=== PATIENT | male | born 1940 | race Hispanic/Latino ===

== ENCOUNTER 2018-08-01 04:44 | Emergency (ER) | payer MEDICARE, OTHER ==
[2018-08-01] MEDS ORDERED: ASPIRIN PO ONE (05:13)
--- NOTE | 2018-08-01 05:36 | XRay Report ---
PROCEDURE: XR CHEST 1V AP TECHNIQUE: Chest radiograph single view. HISTORY: Chest Pain COMPARISONS: None . FINDINGS: Heart: Normal. Mediastinum/Vessels: Multiple sternal wires are present. There is a cardiac pacemaker with battery in the left chest wall. Lungs/Pleural space: Normal. Bony thorax: No acute osseous abnormality. Life support devices: None. IMPRESSION: No acute cardiopulmonary abnormality. This document is electronically signed by Rika Negron DO., Aug 01 2018 05:33:40 AM ET
[2018-08-01 06:04] LABS: Basophils % (Auto) 0.5 % (0.0-1.8); Eosinophils # (Auto) 0.1 K/mm3 (0.0-0.4); Eosinophils % (Auto) 2.2 % (0.0-4.3); Hematocrit 38.7 % (35.5-45.6); Hemoglobin 13.2 gm/dl (11.8-15.2); Lymphocytes # (Auto) 1.6 K/mm3 (1.2-5.4); Lymphocytes % (Auto) 24.6 % (13.4-35.0); Mean Corpuscular HGB Conc 34 % (32-34); Mean Corpuscular Volume 95 fl (84-94); Monocytes # (Auto) 0.7 K/mm3 (0.0-0.8); Monocytes % (Auto) 10.2 % (0.0-7.3); Platelet Count 128 K/mm3 (140-440); Red Blood Count 4.06 M/mm3 (3.65-5.03); Red Cell Distribution Width 13.9 % (13.2-15.2)
[2018-08-01] MEDS ORDERED: NITRO-BID 2% TP ONE (06:18)
[2018-08-01] MEDS ORDERED: CATAPRES PO ONE (06:18)
--- NOTE | 2018-08-01 06:23 | Emergency Department Report ---
HPI - General Chief Complaint: Chest Pain Time Seen by Provider: 08/01/18 06:10 - [facility] HPI: Room 10 The patient is a 77-year-old male presented with a chief complaint of chest pain. The patient states he was awakened this morning at approximately 03:00 with substernal chest pain feeling as though something was sitting on his chest. Patient states he became short of breath and nauseous but denies vomiting or diaphoresis. Patient states his chest pain has been constant. The patient admits to a pleuritic component. The patient states he was told he had an WA approximately 1.5 months ago. Location: Substernal chest Duration: Onset at approximately 03:00, constant Quality: Heaviness Severity: Currently 0/10 Modifying factors: [see above] Context: [see above] Mode of transportation: [not driving] ED Past Medical Hx - Past Medical History Previous Medical History?: Yes Hx Hypertension: Yes Hx Heart Attack/AMI: Yes Additional medical history: stents - Surgical History Past Surgical History?: Yes Hx Pacemaker: Yes Hx Internal Defibrillator: Yes Additional Surgical History: open heart surgery - Family History Family history: no significant - Social History Smoking Status: Never Smoker Substance Use Type: None (denies illicit drug use) - Medications Home Medications: Home Medications Medication Instructions Recorded Confirmed Last Taken Type Amiodarone [Cordarone 200 MG TAB] 200 mg PO BID 08/01/18 08/01/18 07/29/18 History Isosorbide Dinitrate [Isordil 20 mg PO BID 08/01/18 08/01/18 07/29/18 History Titradose] ED Review of Systems ROS: Stated complaint: CHEST PAIN Other details as noted in HPI Constitutional: denies: diaphoresis Eyes: denies: eye pain ENT: denies: throat pain Respiratory: shortness of breath Cardiovascular: chest pain Endocrine: no symptoms reported Gastrointestinal: nausea. denies: abdominal pain, vomiting Genitourinary: denies: dysuria Musculoskeletal: denies: back pain Neurological: denies: headache Physical Exam - Physical Exam Vital Signs: Vital Signs 08/01/18 08/01/18 05:07 06:08 Temperature 98.2 F Pulse Rate 60 60 Respiratory 12 12 Rate Blood Pressure 194/104 Blood Pressure 194/104 183/97 [Right] O2 Sat by Pulse 97 97 Oximetry Physical Exam: GENERAL: The patient is well-developed well-nourished male lying on stretcher not appearing to be in acute distress. [] HEENT: Normocephalic. Atraumatic. Extraocular motions are intact. Patient has moist mucous membranes. NECK: Supple. Trachea midline CHEST/LUNGS: Clear to auscultation. There is no respiratory distress noted. HEART/CARDIOVASCULAR: Regular. There is no tachycardia. There is no gallop rub or murmur. ABDOMEN: Abdomen is soft, nontender. Patient has normal bowel sounds. There is no abdominal distention. SKIN: There is no rash. There is no edema. There is no diaphoresis. NEURO: The patient is awake, alert, and oriented. The patient is cooperative. The patient has normal speech MUSCULOSKELETAL: T There is no evidence of acute injury. ED Course Vital Signs 08/01/18 08/01/18 05:07 06:08 Temperature 98.2 F Pulse Rate 60 60 Respiratory 12 12 Rate Blood Pressure 194/104 Blood Pressure 194/104 183/97 [Right] O2 Sat by Pulse 97 97 Oximetry ED Medical Decision Making - Lab Data Result diagrams: 08/01/18 05:41 08/01/18 05:41 - EKG Data -: EKG Interpreted by Me EKG shows normal: sinus rhythm Rate: normal - EKG Data When compared to previous EKG there are: previous EKG unavailable Interpretation: nonspecific ST-T wave raj (T-wave inversions in leads V3, V4, V5, V6) - Radiology Data Radiology results: report reviewed (chest x-ray, VQ scan), image reviewed (chest x-ray, VQ scan) interpreted by me: Chest x-ray-no focal infiltrates, no pneumothorax Chest x-ray (read by radiologist)-no acute cardiopulmonary abnormality [facility] [address] [place] [address] Nuclear Medicine Report Signed Patient: FABI LOPEZ MR#: [id number] : 1940 Acct:[id number] Age/Sex: 77 / M ADM Date: 08/01/18 Loc: ED Attending Dr: Ordering Physician: MARTIN PACK MD Date of Service: 08/01/18 Procedure(s): NM lung scan perf/vent Accession Number(s): [id number] cc: MARTIN PACK MD LUNG SCAN, VENTILATION AND PERFUSION: Shortness of breath and chest pain: Inhalation of Xenon gas demonstrates a normal distribution of the activity throughout both lungs. The wash out phases show no focal retention of activity. After injection of Technetium 99m macroaggregated albumin gamma camera imaging of the lungs in multiple projections demonstrates normal pulmonary contours with a homogeneous distribution of activity. No focal areas of perfusion deficiency are identified. IMPRESSION: Normal study. Transcribed By: SONALI Dictated By: FELIPE PANDYA MD Electronically Authenticated By: FELIPE PANDYA MD Signed Date/Time: 08/01/181154 DD/ 52 TD/TT: 08/01/18 115 - Medical Decision Making Patient was informed that he was going to be admitted to the hospital for further evaluation. - Differential Diagnosis ACS, PE, pericarditis, GERD Critical care attestation.: If time is entered above; I have spent that time in minutes in the direct care of this critically ill patient, excluding procedure time. ED Disposition Clinical Impression: Chest pain, Hypertension, T wave inversion in EKG Disposition: -07 LEFT AGAINST MED ADVICE Is pt being admited?: Yes Does the pt Need Aspirin: Yes Condition: Fair Instructions: Chest Pain (ED), Hypertension (ED) Referrals: ABISAI ACUÑA [Other] - 3-5 Days
[2018-08-01 06:34] LABS: BUN/Creatinine Ratio 13; Blood Urea Nitrogen 18 mg/dL (9-20); Calcium 8.1 mg/dL (8.4-10.2); Hemolysis Index 15
[2018-08-01 11:28] VITALS: BP 172/101
--- NOTE | 2018-08-01 12:16 | Nuclear Medicine Report ---
LUNG SCAN, VENTILATION AND PERFUSION: Shortness of breath and chest pain: Inhalation of Xenon gas demonstrates a normal distribution of the activity throughout both lungs. The wash out phases show no focal retention of activity. After injection of Technetium 99m macroaggregated albumin gamma camera imaging of the lungs in multiple projections demonstrates normal pulmonary contours with a homogeneous distribution of activity. No focal areas of perfusion deficiency are identified. IMPRESSION: Normal study.
== END 2018-08-01 11:28 | disposition left against medical advice (07) ==
LOC: ED 04:44
DX: I10 Essential (primary) hypertension (principal); I25.2 Old myocardial infarction; Z95.0 Presence of cardiac pacemaker
CPT/HCPCS: 36415; 71045; 78582; 80048; 82962; 84484; 85025; 85379; 93005; 93010; 99285; A9540; A9558